=== PATIENT | female | born 1955 | race Caucasian/White ===

== ENCOUNTER 2018-01-20 20:15 | Emergency (ER) | payer OTHER ==
--- NOTE | 2018-01-20 20:35 | EDPHY ---
H & P Stated Complaint: Back pain, R flank, v/n last nite dx w/bacterial pnuemoniRa Time Seen by Provider: 01/20/18 20:26 HPI/ROS: CHIEF COMPLAINT: The right flank pain HISTORY OF PRESENT ILLNESS: Patient is a 62-year-old female who comes to the emergency department complaining of right flank pain that began last night. She states that it is constant and dull. She also vomited last night. No fever. She complains of urinary frequency but no dysuria or rash. No surgical history. No history of kidney stones. She does report that she has had pain in this same area in the past that has been attributed to arthritis. Usually improved with Aleve but today it has not. No vaginal bleeding or discharge. REVIEW OF SYSTEMS: Constitutional: denies: chills, fever, recent illness, recent injury EENTM: denies: blurred vision, double vision, nose congestion Respiratory: denies: cough, shortness of breath Cardiac: denies: chest pain, irregular heart rate, lightheadedness, palpitations Gastrointestinal/Abdominal: denies: abdominal pain, diarrhea, nausea, vomiting, blood streaked stools Genitourinary: See HPI Musculoskeletal: denies: joint pain, muscle pain Skin: denies: lesions, rash, jaundice, bruising Neurological: denies: headache, numbness, paresthesia, tingling, dizziness, weakness Hematologic/Lymphatic: denies: blood clots, easy bleeding, easy bruising Immunologic/allergic: denies: HIV/AIDS, transplant EXAM: GENERAL: Well-appearing, well-nourished and in no acute distress. HEAD: Atraumatic, normocephalic. EYES: Pupils equal round and reactive to light, extraocular movements intact, sclera anicteric, conjunctiva are normal. ENT: TMs normal, nares patent, oropharynx clear without exudates. Moist mucous membranes. NECK: Normal range of motion, supple without lymphadenopathy or JVD. LUNGS: Breath sounds clear to auscultation bilaterally and equal. No wheezes rales or rhonchi. HEART: Regular rate and rhythm without murmurs, rubs or gallops. ABDOMEN: Soft, nontender, normoactive bowel sounds. No guarding, no rebound. No masses appreciated. BACK: No CVA tenderness, no spinal tenderness, step-offs or deformities EXTREMITIES: Normal range of motion, no pitting or edema. No clubbing or cyanosis. NEUROLOGICAL: Cranial nerves II through XII grossly intact. Normal speech, normal gait. 5/5 strength, normal movement in all extremities, normal sensation PSYCH: Normal mood, normal affect. SKIN: Warm, dry, normal turgor, no visible rashes or lesions. Source: Patient Exam Limitations: No limitations - Personal History Current Tetanus Diphtheria and Acellular Pertussis (TDAP): Yes - Medical/Surgical History Hx Asthma: No Hx Chronic Respiratory Disease: No Hx Diabetes: No Hx Cardiac Disease: No Hx Renal Disease: No Hx Cirrhosis: No Hx Alcoholism: No Hx HIV/AIDS: No Hx Splenectomy or Spleen Trauma: No Other PMH: denies - Family History Significant Family History: No pertinent family hx - Social History Smoking Status: Never smoked Alcohol Use: Sober Drug Use: None Constitutional: Initial Vital Signs Temperature (C) 36.9 C 01/20/18 20:18 Heart Rate 73 01/20/18 20:18 Respiratory Rate 18 01/20/18 20:18 Blood Pressure 139/87 H 01/20/18 20:18 O2 Sat (%) 97 01/20/18 20:18 O2 Delivery Mode Room Air Allergies/Adverse Reactions: No Known Allergies Allergy (Unverified 01/20/18 20:18) Home Medications: Medication Instructions Recorded Cephalexin [Keflex] 500 mg PO TID #21 cap 01/20/18 Fluconazole [Diflucan (*)] 150 mg PO ONCE #1 tab 01/20/18 Medical Decision Making ED Course/Re-evaluation: Patient's urinalysis is positive. This is consistent with her symptoms. I will start her on Keflex. She is happy with this plan and declines further workup or testing at this time. We discussed indications for returning. Differential Diagnosis: Partial list of the Differential diagnosis considered include but were not limited to; urinary tract infection, pyelonephritis, kidney stone and although unlikely based on the history and physical exam, I also considered appendicitis , ovarian cysts, hernia. I discussed these differential diagnoses and the plan with the patient as well as the usual and expected course. The patient understands that the diagnosis is provisional and that in medicine we are not always correct and that further workup is often warranted. Usual and customary warnings were given. All of the patient's questions were answered. The patient was instructed to return to the emergency department should the symptoms at all worsen or return, otherwise to followup with the physician as we discussed. - Data Points Laboratory Results: 01/20/18 20:30 Urine Color YELLOW Urine Appearance CLEAR Urine pH 6.0 (5.0-7.5) Ur Specific Chambers 1.023 (1.002-1.030) Urine Protein NEGATIVE (NEGATIVE) Urine Ketones TRACE H (NEGATIVE) Urine Blood NEGATIVE (NEGATIVE) Urine Nitrate NEGATIVE (NEGATIVE) Urine Bilirubin NEGATIVE (NEGATIVE) Urine Urobilinogen NEGATIVE EU EU (0.2-1.0) Ur Leukocyte Esterase 1+ H (NEGATIVE) Urine RBC NONE SEEN /hpf /hpf (0-3) Urine WBC 5-10 /hpf H /hpf (0-3) Ur Epithelial Cells TRACE /lpf /lpf (NONE-1+) Urine Mucus TRACE /lpf /lpf (NONE-1+) Urine Glucose NEGATIVE (NEGATIVE) Medications Given: Discontinued Medications Cephalexin (Keflex 500 Mg Prepack#4) 1 btl TAKEHOME EDNOW ONE PRN Reason: Protocol Stop: 01/20/18 21:07 Last Admin: 01/20/18 21:11 Dose: 1 btl Ondansetron HCl (Zofran Odt 4 Mg Prepack#2) 1 btl TAKEHOME EDNOW ONE Stop: 01/20/18 21:07 Last Admin: 01/20/18 21:11 Dose: 1 btl Phenazopyridine HCl (Pyridium) 200 mg PO EDNOW ONE Stop: 01/20/18 21:07 Last Admin: 01/20/18 21:12 Dose: 200 mg Departure - Departure Disposition: Home, Routine, Self-Care Clinical Impression: Urinary tract infection Qualifiers: Urinary tract infection type: acute pyelonephritis Qualified Code(s): N10 - Acute pyelonephritis Condition: Fair Instructions: Urinary Tract Infection in Women (ED) Referrals: NONE *PRIMARY CARE P,. [Primary Care Provider] - As per Instructions Prescriptions: Cephalexin [Keflex] 500 mg PO TID #21 cap Fluconazole [Diflucan (*)] 150 mg PO ONCE #1 tab
[2018-01-20] MEDS ORDERED: CEPHALEXIN 500 MG CAP PO ONE (20:53)
[2018-01-20] MEDS ORDERED: PHENAZOPYRIDINE HCL 200 MG TAB ONE (21:03)
[2018-01-20] MEDS ORDERED: CEPHALEXIN 500MG PREPACK#4 BTL TAKEHOME ONE ×2 (21:03→21:06)
[2018-01-20] MEDS ORDERED: PHENAZOPYRIDINE HCL 200 MG TAB PO ONE (21:06)
[2018-01-20] MEDS ORDERED: ONDANSETRON 4MG PREPACK#2 BTL TAKEHOME ONE (21:06)
[2018-01-20 21:16] VITALS: BP 110/76
== END 2018-01-20 21:16 | disposition home or self-care (01) ==
DX: N10 Acute pyelonephritis (principal); B96.89 Other specified bacterial agents as the cause of diseases classified elsewhere